=== PATIENT | male | born 1955 | race Caucasian/White ===

== ENCOUNTER 2020-12-16 23:50 | Emergency (ER) | payer BC, SELFPAY ==
[2020-12-16 23:45] VITALS: PULSE 0; RESP 0; O2SAT 51
--- NOTE | 2020-12-17 00:16 | ED.CPR ---
HPI - CPR General Chief Complaint: Cardiac Arrest/CPR Stated Complaint: Code Blue Time Seen by Provider: 12/17/20 00:16 History of Present Illness HPI narrative: Patient is a 65-year-old male presenting as CPR in progress. Initial call was for chest pain which started 15 minutes prior to EMS arrival. EMS noted ST elevation he had V2 through V4 with ST depression in reciprocal leads. Initially they were following STEMI protocol and headed to [facility] for heart catheterization however patient became pulseless and CPR was started. He was noted have ventricular fibrillationarrest he was shocked once prior to arrival. No medications were given and care was transferred. CPR was immediately resumed. His is at bedside. He reports the patient was feeling fine he has no prior medical history. He says pain started 15 minutes prior to EMS arrival. He has no known coronary artery disease and takes no medication. They are on their boat from [place]. This came on quite suddenly. Review of Systems Review of Systems ROS Unobtainable: Unobtainable due to medical condition Exam Initial Vital Signs Initial Vital Signs: Vital Signs Pulse Rate 0 L 12/16/20 23:45 Respiratory Rate 0 L 12/16/20 23:45 Gen.: Unresponsive Cyanotic LMA employed HEENT: Atraumatic fixed pupils Neck: No JVD Lungs: No spontaneous air movement Cardiac: Pulseless Abdomen: Soft nondistended Extremities: Cool extremities no gross bony deformity Neurologic: Unresponsive GCS 3 Procedures Intubation sedative: none Laryngoscope: fiber optic video scope Assist Device Used: Bougie (Use but unsuccessful) ET Tube Size: 6 Tube Placement Confirmation: Visualized tube passing through cords, Equal breath sounds bilaterally, No breath sounds over epigastrium and Confirmation by capnometry Intubation Complications: difficult intubation (Multiple attempts. Cords were easily visualized however ET tube did not pass through the cords. 1 went through and the and it came out. Small size eventually went in. There was some blood in mouth after cardioversion, it was easily succtioned. Not on blood thinners. ) Course Vital Signs Vital signs: Vital Signs - 8 hr 12/16/20 23:45 Pulse Rate 0 L Respiratory Rate 0 L MDM - Cardiac Arrest/CPR MDM Narrative Medical decision making narrative: ACLS protocols were followed. Patient had mostly PEA and asystole. However there were 2-3 times he had possible fine VFib. Patient was cardioverted. Lidocaine was given. Ultrasound used to monitor cardiac output. No cardiac activity was identified. Patient was difficult intubation cords were easily visualized however ET tube was difficult to pass through the cords. 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 Patient has been unresponsive for about 35 minutes. Multiple rounds of epinephrine, cardioversions, a dose of lidocaine and bicarb. Discussion with , about stopping. He understood and agreed. Ultrasound again used in no cardiac activity identified. Time of is 12:14 a.m. Critical Care Time Critical Care Time Critical Care Time: Yes Total Critical Care Time: 30 Attestation: The high probability of a clinically significant, sudden or life threatening deterioration of the [cardiovascular] system(s) required my full and direct attention, intervention and personal management. The aggregate critical care time was 30 minutes. This time is in addition to time spent performing reported procedures but includes the following: [x] Data Review and interpretation [x] Patient assessment and monitoring of vital signs [x] Documentation [x] Medication orders and management Discharge Plan Departure Patient Disposition: Clinical Impression: Acute myocardial infarction Qualifiers: Myocardial infarction type: ST elevation myocardial infarction Involved coronary artery: LAD coronary artery Qualified Code(s): I21.02 - ST elevation (STEMI) myocardial infarction involving left anterior descending coronary artery
--- NOTE | 2020-12-17 00:45 | PC.NURSE ---
See paper chart for Code Blue flowsheet.
--- NOTE | 2020-12-17 01:07 | PC.NURSE ---
Spouse, Amrit Bower, cell: [phone]
--- NOTE | 2020-12-17 03:26 | PC.NURSE ---
I phoned the network development coordinator for organ/tissue donation soon after expiration and am still waiting for a call back from them. I have just notified Melecio at [facility] office and am now awaiting a call back from her after she speaks with her superior. The patient is cooled with ice packs applied and temperature in room turned down.
--- NOTE | 2020-12-17 03:39 | PC.NURSE ---
Pt iced down, room temp decreased. Saline dropped into eyes, eyelids taped shut, head of bed elevated slightly
--- NOTE | 2020-12-17 04:05 | PC.NURSE ---
Aarti from the organ/tissue donation center called back, case discussed. She indicated that pt is a potential donor for tissues and corneas. Pt's eyes have been flushed with saline and taped shut with paper tape.
== END 2020-12-17 04:30 | disposition expired ==
PROVIDERS: Emergency Provider Emergency Medicine
DX: I21.02 ST elevation (STEMI) myocardial infarction involving left anterior descending coronary artery (principal); I46.2 Cardiac arrest due to underlying cardiac condition
CPT/HCPCS: 31500; 92950; 94799; 99282; 99291; J0171